=== PATIENT | female | born 2000 | race Hispanic/Latino ===

== ENCOUNTER 2022-07-18 18:35 | Inpatient (IN) | payer OTHER ==
[~2022-07-18] VITALS: Ht 157.5 cm; Wt 81.2 kg
[2022-07-18 19:41] LABS: AMPHET/METH SCREEN,URINE NEGATIVE (NEGATIVE); BARBITURATE SCREEN, URINE NEGATIVE (NEGATIVE); BENZODIAZEPINES SCREEN,URINE NEGATIVE (NEGATIVE); CANNABINOID SCREEN,URINE NEGATIVE (NEGATIVE); COCAINE SCREEN,URINE NEGATIVE (NEGATIVE); OPIATE SCREEN,URINE NEGATIVE (NEGATIVE); PHENCYCLIDINE SCREEN,URINE NEGATIVE (NEGATIVE)
[2022-07-18 19:45] LABS: APPEARANCE,URINE CLEAR (CLEAR); BILIRUBIN,URINE NEGATIVE (NEGATIVE); COLOR,URINE YELLOW (YELLOW); GLUCOSE, URINE (UA) NEGATIVE (NEGATIVE); KETONES,URINE NEGATIVE (NEGATIVE); LEUKOCYTE ESTERASE ,URINE NEGATIVE Leu/uL (NEGATIVE); NITRATE,URINE NEGATIVE (NEGATIVE); OCCULT BLOOD,URINE NEGATIVE (NEGATIVE); PROTEIN,URINE 10 mg/dL (NEGATIVE); UROBILINOGEN,URINE 0.2 mg/dL (0.2-1.0)
[2022-07-18 20:07] LABS: HEMATOCRIT 29.1 % (36-48); MEAN CORPUSCULAR HEMOGLOBIN 21.9 pg (27.0-33.0); MEAN CORPUSCULAR HGB CONC 29.9 g/dL (32.0-36.0); MEAN CORPUSCULAR VOLUME 73.3 fL (80-100); PLATELET COUNT (AUTO) 246 K/uL (130-400); RED BLOOD CELL COUNT(AUTO) 3.97 MIL/uL (4.00-5.50); RED CELL DISTRIBUTION WIDTH 14.9 % (11.0-15.5); WHITE BLOOD COUNT (AUTO) 9.1 K/uL (4.8-10.8)
[2022-07-18 20:08] LABS: BACTERIA,URINE RARE /HPF (None Seen); MUCUS,URINE RARE LPF (None Seen); SQUAMOUS EPITHELIAL CELL,UR RARE /HPF (0-2)
[2022-07-18 20:16] VITALS: BP 126/64
[2022-07-18] MEDS: LACTATED RINGERS 1000ML 1,000 ML IV SCH ×2 (20:16→22:35)
[2022-07-18] MEDS ORDERED: PREN-196 PO (20:23)
[2022-07-18] MEDS ORDERED: EPHEDRINE SULFATE 50 MG/ML AMPULE IVP PRN (21:00)
[2022-07-18] MEDS ORDERED: NALOXONE HCL 0.4 MG/1 ML ML IV PRN (21:00)
[2022-07-18] MEDS ORDERED: PROMETHAZINE HCL 25 MG/ML 1ML AMPULE IM PRN (21:00)
[2022-07-18] MEDS ORDERED: ROPIVACAINE 0.2% 100ML VIAL 100 ML EP SCH (21:00)
[2022-07-18] MEDS ORDERED: LACTATED RINGERS 500 ML 500 ML IV PRN (21:00)
[2022-07-18] MEDS ORDERED: MEPERIDINE-PF 50 MG/ML SYG IM PRN (21:00)
[2022-07-18] MEDS ORDERED: LACTATED RINGERS 1000ML 1,000 ML IV PRN (21:00)
[2022-07-18] MEDS ORDERED: AMPICILLIN 2GM+NS 100ML 100 ML IV SCH (21:30)
[2022-07-19] MEDS: AMPICILLIN 1GM+NS 50ML 50 ML IV SCH ×11 (01:48→23:03)
[2022-07-19] MEDS: LACTATED RINGERS 1000ML 1,000 ML IV SCH (05:50)
[2022-07-19] MEDS: DINOPROSTONE 10 MG VAGINAL SUPP VG SCH ×2 (10:04→23:02)
[2022-07-19 14:01] LABS: HEMATOCRIT 28.9 % (36-48)
[2022-07-19] MEDS ORDERED: PROMETHAZINE HCL 25 MG/ML 1ML AMPULE IM PRN (16:00)
[2022-07-19] MEDS ORDERED: 0.9%NACL 10ML VIAL IVP PRN (16:00)
[2022-07-19] MEDS ORDERED: OXYTOCIN-LR 20 UNITS/1000 ML 1,000 ML IV PRN (16:00)
[2022-07-19] MEDS ORDERED: MEPERIDINE-PF 75 MG/ML SYG IM PRN (16:00)
[2022-07-19] MEDS ORDERED: CEFAZOLIN SODIUM 2 GM VIAL IVPB PRN (16:00)
[2022-07-19] MEDS ORDERED: DEXTROSE 5 %-0.45 % NACL 1,000 ML IV PRN (16:00)
[2022-07-19] MEDS ORDERED: CEFAZOLIN SODIUM 2 GM VIAL ONE (16:08)
[2022-07-19] MEDS ORDERED: MORPHINE PF 100MG/10ML AMP IV ONE (17:02)
[2022-07-19] MEDS ORDERED: CEFAZOLIN SODIUM 2 GM VIAL IVPB ONE (17:10)
[2022-07-19] MEDS ORDERED: OXYTOCIN 10 USP UNITS/ML ONE ×2 (17:27→17:56)
[2022-07-19] MEDS ORDERED: ONDANSETRON 4MG INJ ONE (19:13)
[2022-07-19] MEDS ORDERED: EPHEDRINE SULFATE 50 MG/ML AMPULE IVP PRN (19:30)
[2022-07-19] MEDS ORDERED: ONDANSETRON 4MG INJ IVP PRN (19:30)
[2022-07-19] MEDS ORDERED: DiphenhydrAMINE HCL 50 MG/ML VIAL IVP PRN (19:30)
[2022-07-19] MEDS ORDERED: NALOXONE HCL 0.4 MG/1 ML ML IVP PRN ×3 (19:30)
[2022-07-19 20:49] VITALS: BP 127/67
[2022-07-19] MEDS ORDERED: FLU VACC QS2022-23(6MOS UP)/PF 60 MCG/0.5 ML ML IM ONE (23:00)
[2022-07-19 23:13] VITALS: BP 141/68
[2022-07-19] MEDS ORDERED: ACETAMINOPHEN WITH CODEINE 1 TAB TAB PO PRN (23:30)
[2022-07-19] MEDS ORDERED: LORATADINE 10 MG TABLET PO PRN (23:30)
[2022-07-19] MEDS ORDERED: ACETAMINOPHEN 325 MG TAB PO PRN (23:30)
[2022-07-20] MEDS: AMPICILLIN 1GM+NS 50ML 50 ML IV SCH ×3 (02:56→08:09)
[2022-07-20 03:12] VITALS: BP 110/76
[2022-07-20 06:31] LABS: HEMATOCRIT 29.2 % (36-48); MEAN CORPUSCULAR HEMOGLOBIN 22.3 pg (27.0-33.0); MEAN CORPUSCULAR HGB CONC 29.8 g/dL (32.0-36.0); MEAN CORPUSCULAR VOLUME 74.9 fL (80-100); RED BLOOD CELL COUNT(AUTO) 3.9 MIL/uL (4.00-5.50); RED CELL DISTRIBUTION WIDTH 15.4 % (11.0-15.5); WHITE BLOOD COUNT (AUTO) 11.4 K/uL (4.8-10.8)
[2022-07-20 06:34] VITALS: BP 117/74
[2022-07-20] MEDS ORDERED: HYDROCODONE/ACETAMINOPHEN 5/325 MG TAB PO PRN (08:00)
[2022-07-20] MEDS ORDERED: BISACODYL 10 MG SUPP.RECT RC PRN (08:00)
[2022-07-20] MEDS ORDERED: DIPHENHYDRAMINE HCL 25 MG CAPSULE PO PRN (08:00)
[2022-07-20] MEDS ORDERED: SIMETHICONE 80 MG TAB.CHEW PO PRN (08:00)
[2022-07-20] MEDS ORDERED: DIPH,PERTUSS(ACELL),TET VAC/PF 0.5 ML VIAL IM SCH (08:00)
[2022-07-20] MEDS ORDERED: ACETAMINOPHEN WITH CODEINE 1 TAB TAB PO PRN (08:00)
[2022-07-20] MEDS ORDERED: ACETAMINOPHEN 500 MG TABLET PO PRN (08:00)
[2022-07-20] MEDS ORDERED: LANOLIN 30GM OINTMENT TP PRN (08:00)
[2022-07-20] MEDS ORDERED: IBUPROFEN 600 MG TABLET PO PRN (08:00)
[2022-07-20] MEDS ORDERED: DOCUSATE SODIUM 100 MG CAP PO SCH (09:00)
[2022-07-20] MEDS ORDERED: FLU VACC QS2022-23(6MOS UP)/PF 60 MCG/0.5 ML ML IM SCH (10:00)
[2022-07-20 10:23] VITALS: BP 106/62
[2022-07-20 11:43] LABS: RAPID PLASMA REAGIN NONREACTIVE (NONREACTIVE)
[2022-07-20 14:18] VITALS: BP 102/59
[2022-07-20] MEDS ORDERED: ACET-2079 PO (16:08)
[2022-07-20] MEDS ORDERED: FERR-82 PO (16:09)
== END 2022-07-20 17:40 | disposition home or self-care (01) | DRG 788 ==
LOC: EDH 18:35 → OBSVTOIN 19:12 → LDH 19:12 → WSH 07-19 20:40
PROVIDERS: ADMIT Obstetrics & Gynecology; ATTEND Obstetrics & Gynecology
PROC: 10D00Z1 Extraction of Products of Conception, Low, Open Approach (ICD-10-PCS; principal; 2022-07-19 17:00)
DX: O62.2 Other uterine inertia (principal); Z37.0 Single live birth; Z3A.39 39 weeks gestation of pregnancy
CPT/HCPCS: 36415; 59510; 76805; 80305; 81001; 85014; 85018; 85027; 86592; 86701; 86762; 86850; 86900; 86901; 86923; 87340; 87390; 90715; A4344; G0378; J0290; J1200; J2175; J2274; J2405; J2550; J2590; J7120; P9016; Q2035